=== PATIENT | male | born 1975 | race Caucasian/White ===

== ENCOUNTER → 2017-02-07 | Outpatient (CLI) | payer MEDICAID ==
--- NOTE | 2017-02-09 11:52 | MRI ---
HISTORY: Low back pain Study: MRI lumbar spine without contrast Comparison: None Technique: Multiplanar multi-sequence MRI of the lumbar spine was obtained. Sagittal T1, sagittal T2 , and stir weighted images, axial T1, and axial T2 images were obtained. Findings: The lumbar spine demonstrates normal alignment. No abnormal cord or marrow signal identified. The co nus of the cord terminates normally. The surrounding soft tissues are within normal limits. Vertebra l body heights are preserved. The disc spaces are normal. T12 -- L1: No significant spinal or foraminal stenosis identified. L1 -- L2: No significant spinal or foraminal stenosis identified. L2 -- L3: Mild facet hypertrophic changes without significant spinal or foraminal stenosis identified . L3 -- L4: Moderate facet hypertrophic changes without significant spinal or foraminal stenosis identi fied. L4 -- L5: Moderate facet degenerative changes without significant spinal or foraminal stenosis identi fied. L5 -- S1: Mild facet degenerative changes without significant spinal or foraminal stenosis identified . IMPRESSION: 1. Mild to moderate facet degenerative changes as described without significant spinal or foraminal s tenosis. Reported By:
== END | disposition home or self-care (01) | DRG 556 ==
LOC: RAD 15:23
PROVIDERS: ATTEND Surgery
DX: M79.605 Pain in left leg (principal); M47.896 Other spondylosis, lumbar region
CPT/HCPCS: 72148